=== PATIENT | male | born 1935 | race Caucasian/White ===

== ENCOUNTER 2022-11-14 14:16 | Emergency (ER) | payer MEDICARE, OTHER, SELFPAY ==
[2022-11-14] VITALS (7 sets, daily range): BP systolic 119–143; BP diastolic 76–87; PULSE 82–84; RESP 16–18; TEMP 36.8; O2SAT 98–100; BMI 27.9
--- NOTE | 2022-11-14 15:03 | ED.GENADULT ---
HPI - General Adult General Time Seen by Provider: 15:03 Date Seen: 11/14/22 Chief complaint: Cough Stated complaint: COVID+ Time Seen by Provider: 11/14/22 14:49 Source: patient and RN notes reviewed Limitations: no limitations History of Present Illness HPI narrative: This 86-year-old male is coming in just wanting someone to listen to his lungs, reassure him that he is okay. He has been sick with a cold for couple weeks. He would not say that his respiratory status is that concerning. Did finally test for COVID today, use 2 tests in both were positive. He has had a lot of postnasal congestion with this, no fevers. Can not really tell if there is a sore throat or if it is just the posterior nasal drainage. He has had a bit of a cough, sometimes productive, sometimes feels like it is difficult to get the mucus up. Denies any prior cardiopulmonary history. Has not really had any chest pain. Does have some pain with exhaling but not breathing in. He is not short of breath with this. Has had no GI symptoms with this. He states he is up-to-date on his immunizations including COVID. He did have documented COVID about 6 months ago. Related Data Home Medications Medication Instructions Recorded Confirmed finasteride 5 mg tablet mg 11/14/22 simvastatin 20 mg tablet mg 11/14/22 Previous Rx's Medication Instructions Recorded doxycycline monohydrate 100 mg 100 mg PO BID #14 caps 11/14/22 capsule Allergies Allergy/AdvReac Type Severity Reaction Status Date / Time No Known Drug Allergies Allergy Verified 11/14/22 14:52 Review of Systems Status of ROS: Reports: 6 or more systems reviewed and unremarkable except as noted in History and below PFSH PFS Social History Smoking Status: Never smoker Do you use any of these nicotine containing products: None Second hand tobacco smoke exposure: No How often do you have a drink containing alcohol: never AUDIT-C Alcohol total score: 0 Non-prescribed substance use: denies use service: No Exam Const: Vital Signs, click to edit/add: Vital Signs - 24 hr 11/14/22 14:49 11/14/22 14:49 11/14/22 15:30 Temperature 98.2 F Pulse Rate [Pulse Oximeter] 83 82 Respiratory Rate 16 18 Blood Pressure [Ri ght Upper Arm] 143/87 H 129/76 Pulse Oximetry 98 99 99 Oxygen Delivery Me thod Room Air Room Air 11/14/22 15:00 Temperature Pulse Rate [Pulse Oximeter] 82 Respiratory Rate Blood Pressure [Ri ght Upper Arm] 129/85 Pulse Oximetry 98 Oxygen Delivery Me thod Room Air Documenting provider has reviewed patient's vital signs: yes Common normals: no apparent distress, average body habitus, oriented x3, no limitations, healthy appearing, alert and well nourished General appearance: cooperative, comfortable, well kempt and well developed Other: Patient is able speak in complete sentences, is oxygenating in the upper 90s without any difficulty. Looks quite well. HENMT: Common normals: normocephalic, head/scalp atraumatic and hearing grossly normal bilaterally Head and scalp: normocephalic and atraumatic Eye: Common normals: PERRL, EOMs intact bilaterally, conjunctivae normal and no scleral icterus Conjunctiva: conjunctiva(e) normal Pupil: PERRL Neck & C-Spine: Common normals: full ROM, no lymphadenopathy, supple, no meningeal signs, no JVD and thyroid normal Thyroid: thyroid normal Resp: Common normals: normal respiratory effort, no retractions, no use of accessory muscles and clear to auscultation bilaterally Auscultation: clear to auscultation bilaterally Cardio: Common normals: no JVD, regular rate, regular rhythm, S1 normal heart sound, S2 normal heart sound, no gallops, no clicks and no murmurs Rate: regular rate Rhythm: regular rhythm Heart sounds: S1 normal and S2 normal GI: Common normals: Normal to inspection, nondistended, normoactive bowel sounds present, soft to palpation, non-tender, no hepatosplenomegaly and no masses Palpation: soft and no hepatosplenomegaly Neuro: Common normals: oriented x3 Sensorium/orientation: alert Meningeal signs: no meningeal signs Psych: Appearance: well kempt Course Course Hospital Course: Monitor him on pulse oximetry to ensure no hypoxia. Will do basic labs and get a portable chest x-ray for him. He is in agreement with this plan. Reevaluation(s) Reevaluation #1: Reviewed with patient that he has been oxygenating excellently while here, no hypoxia. His chest x-ray is potentially showing maybe a small focus of pneumonia. My guess is that he has had COVID and is developing a little secondary pneumonia. 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 His labs are stable, no evidence of any cardiac complications. He is stable to discharge to home. Would not initiate any antiviral treatment for COVID given that he has been sick for 2 weeks. Time: 16:53 Vital Signs Vital signs: Initial Vital Signs Temperature 98.2 F 11/14/22 14:49 Temperature Source Temporal Artery Scan 11/14/22 14:49 Pulse Rate 83 11/14/22 14:49 Pulse Rhythm 11/14/22 14:49 Pulse Strength 3+ Normal 11/14/22 14:49 Respiratory Rate 16 11/14/22 14:49 Blood Pressure 143/87 H 11/14/22 14:49 Blood Pressure Mean 105 11/14/22 14:49 Blood Pressure Position Supine 11/14/22 14:49 Pulse Oximetry 98 11/14/22 14:49 Oxygen Delivery Method 11/14/22 14:49 Vital Signs Temperature 98.2 F 11/14/22 14:49 Pulse Rate 83 11/14/22 14:49 Respiratory Rate 16 11/14/22 14:49 Blood Pressure 143/87 H 11/14/22 14:49 Pulse Oximetry 98 11/14/22 14:49 Oxygen Delivery Method 11/14/22 14:49 Temperature 98.2 F 11/14/22 14:49 Pulse Rate 82 11/14/22 15:30 Respiratory Rate 18 11/14/22 15:30 Blood Pressure 129/76 11/14/22 15:30 Pulse Oximetry 99 11/14/22 15:30 Oxygen Delivery Method 11/14/22 15:30 Medical Decision Making Lab Data Lab results reviewed: Yes I reviewed the patient's lab results Labs: Lab Results 11/14/22 11/14/22 11/14/22 Range/Units 14:53 15:46 15:46 WBC 6.98 (4.50-11.00) K/uL RBC 4.72 (4.30-5.90) m/uL Hgb 15.4 (13.5-17.5) gm/dL Hct 46.4 (37.0-53.0) % MCV 98 (80-100) fL MCH 33 (26-34) pg MCHC 33 (32-36) gm/dL RDW Coeff of Chetan 13.1 (11.5-15.5) % Plt Count 184 (140-440) K/uL Neut % (Auto) 58.4 (42.0-72.0) % Lymph % (Auto) 22.6 (20-44) % Mcdonough % (Auto) 15.5 H (0.0-11.0) % Eos % (Auto) 2.1 (0.0-7.0) % Baso % (Auto) 0.4 (0.0-3.0) % Neut # (Auto) 4.07 (1.7-7.0) K/uL Lymph # (Auto) 1.58 (0.90-2.90) K/uL Mcdonough # (Auto) 1.10 H (0.00-0.90) K/UL Eos # (Auto) 0.15 (0.00-0.50) K/uL Baso # (Auto) 0.03 (0.00-0.30) K/uL Sodium 140 (135-149) mmol/L Potassium 4.6 (3.6-5.1) mmol/L Chloride 105 (96-114) mmol/L Carbon Dioxide 29 (20-32) mmol/L BUN 23 (7-30) mg/dL Creatinine 1.1 (0.5-1.5) mg/dL Estimated Creat Clear 53.24 Estimated GFR 66 ml/min Glucose 88 (60-115) mg/dL Calcium 9.3 (8.4-10.6) mg/dL Total Bilirubin 0.5 (0.1-1.5) mg/dL AST 43 H (12-35) U/L ALT 54 H (4-50) U/L Alkaline Phosphatase 85 (40-150) U/L C-Reactive Protein 0.7 (0.5-1.0) mg/dL Total Protein 7.2 (6.0-8.3) g/dL Albumin 4.3 (3.3-5.0) g/dL SARS-CoV-2 (PCR) POSITIVE SARS-CoV-2 A (Negative) Influenza Type A (PCR) Negative PCR FLU A (Negative) Influenza Type B (PCR) Negative PCR FLU B (Negative) RSV (PCR) Negative PCR RSV (Negative) POC Troponin I (0.01-0.04) ng/ml 11/14/22 Range/Units 15:47 WBC (4.50-11.00) K/uL RBC (4.30-5.90) m/uL Hgb (13.5-17.5) gm/dL Hct (37.0-53.0) % MCV (80-100) fL MCH (26-34) pg MCHC (32-36) gm/dL RDW Coeff of Chetan (11.5-15.5) % Plt Count (140-440) K/uL Neut % (Auto) (42.0-72.0) % Lymph % (Auto) (20-44) % Mcdonough % (Auto) (0.0-11.0) % Eos % (Auto) (0.0-7.0) % Baso % (Auto) (0.0-3.0) % Neut # (Auto) (1.7-7.0) K/uL Lymph # (Auto) (0.90-2.90) K/uL Mcdonough # (Auto) (0.00-0.90) K/UL Eos # (Auto) (0.00-0.50) K/uL Baso # (Auto) (0.00-0.30) K/uL Sodium (135-149) mmol/L Potassium (3.6-5.1) mmol/L Chloride (96-114) mmol/L Carbon Dioxide (20-32) mmol/L BUN (7-30) mg/dL Creatinine (0.5-1.5) mg/dL Estimated Creat Clear Estimated GFR ml/min Glucose (60-115) mg/dL Calcium (8.4-10.6) mg/dL Total Bilirubin (0.1-1.5) mg/dL AST (12-35) U/L ALT (4-50) U/L Alkaline Phosphatase (40-150) U/L C-Reactive Protein (0.5-1.0) mg/dL Total Protein (6.0-8.3) g/dL Albumin (3.3-5.0) g/dL SARS-CoV-2 (PCR) (Negative) Influenza Type A (PCR) (Negative) Influenza Type B (PCR) (Negative) RSV (PCR) (Negative) POC Troponin I 0.00 L (0.01-0.04) ng/ml Imaging Data Chest x-ray: Attestation: I have reviewed the pertinent imaging results. My impression: Did visualize patient's chest x-ray. Radiologist's impression: Patient: VAUGHN QUEZADA Facility:?[facility] Patient ID:?[id number] Site Patient ID:?[id number]. Site :?[id number] Study:?XRay Chest Portable-11/14/2022 3:34:44 PM Ordering Physician:Annmarie Zepeda Final Report: INDICATION: Cough, COVID TECHNIQUE: Chest 1 view COMPARISON: 03/07/2022 FINDINGS: Cardiovascular and mediastinum: Tortuosity of the aorta. Cardiac silhouette is upper limits of normal. Lungs and pleural spaces: Subtle density within the left infrahilar lung is present. Incidental calcified granuloma within the right upper lobe and calcified nodule or lymph node adjacent to the right side of the trachea. Bones and soft tissues: No significant findings. IMPRESSION: A subtle infiltrate may be present within the left infrahilar lung. Old granulomatous disease. Dictated by Naveed Tejeda MD @ 11/14/2022 3:53:25 PM (Electronic Signature) ECG Data Attestation: I personally reviewed and interpreted this ECG as follows: (Normal sinus rhythm, 87 beats per minute, normal EKG, no ischemia. QT corrected 462 milliseconds.) Prior ECG tracings: not available for review Critical Care Time Critical Care Time Critical Care Time: No Discharge Plan Discharge Clinical Impression: COVID-19, Secondary bacterial pneumonia Condition: Stable Instructions: Bacterial Pneumonia (ED), COVID-19 (Coronavirus Disease 2019) (ED) Additional Instructions: Take oral antibiotics as prescribed, next dose due tomorrow morning. Recommend recheck with your primary care provider in about 1 weeks time or sooner if concerns. Should you develop fever, difficulty breathing or shortness of breath, feel you are worsening, do recommend re-evaluation. Activity Level: Activity as Tolerated Prescriptions: New doxycycline monohydrate 100 mg capsule 100 mg PO BID Qty: 14 0RF No Action simvastatin 20 mg tablet Label Comments: TAKE 1 TABLET BY MOUTH EVERYDAY AT BEDTIME finasteride 5 mg tablet Label Comments: TAKE 1 TABLET BY MOUTH EVERY DAY Follow Up/Referrals: Chito Rush MD [Primary Care Provider] - Stand Alone Forms: [facility] Info Instructions
--- NOTE | 2022-11-14 15:17 | CRLHL7_ITS ---
For Patients: As a result of the Cures Act, medical imaging exams and procedure reports are released immediately into your electronic medical record. You may view this report before your referring provider. If you have questions, please contact your health care provider. INDICATION: Cough, COVID TECHNIQUE: Chest 1 view COMPARISON: 03/07/2022 FINDINGS: Cardiovascular and mediastinum: Tortuosity of the aorta. Cardiac silhouette is upper limits of normal. Lungs and pleural spaces: Subtle density within the left infrahilar lung is present. Incidental calcified granuloma within the right upper lobe and calcified nodule or lymph node adjacent to the right side of the trachea. Bones and soft tissues: No significant findings. IMPRESSION: A subtle infiltrate may be present within the left infrahilar lung. Old granulomatous disease. Dictated by Naveed Tejeda MD @ 11/14/2022 3:53:25 PM (Electronically Signed)
[2022-11-14 15:40] LABS: PCR FLU A Negative PCR FLU A (Negative); PCR FLU B Negative PCR FLU B (Negative); PCR RSV Negative PCR RSV (Negative)
[2022-11-14 15:41] LABS: SARS PCR* POSITIVE SARS-CoV-2 (Negative)
[2022-11-14 16:05] LABS: Basophils Absolute Auto 0.03 K/uL (0.00-0.30); Basophils Percent Auto 0.4 % (0.0-3.0); Eosinophils Absolute Auto 0.15 K/uL (0.00-0.50); Eosinophils Percent Auto 2.1 % (0.0-7.0); Hematocrit 46.4 % (37.0-53.0); Hemoglobin* 15.4 gm/dL (13.5-17.5); Immature Granulocytes Abs Auto 0.07 K/uL (0.00-0.30); Lymphocytes Absolute Auto 1.58 K/uL (0.90-2.90); Lymphocytes Percent Auto 22.6 % (20-44); Mean Corpuscular HGB Conc 33 gm/dL (32-36); Mean Corpuscular Hemoglobin 33 pg (26-34); Mean Corpuscular Volume 98 fL (80-100); Monocytes Percent Auto 15.5 % (0.0-11.0); Neutrophils Absolute Auto 4.07 K/uL (1.7-7.0); Neutrophils Percent Auto 58.4 % (42.0-72.0); Platelet Count* 184 K/uL (140-440); RDW Coefficient of Variation % 13.1 % (11.5-15.5); Red Blood Count 4.72 m/uL (4.30-5.90); White Blood Count* 6.98 K/uL (4.50-11.00)
[2022-11-14 16:06] LABS: Slide Review Reflex No
[2022-11-14 16:08] LABS: Albumin* 4.3 g/dL (3.3-5.0); Chloride* 105 mmol/L (96-114)
[2022-11-14 16:09] LABS: Potassium* 4.6 mmol/L (3.6-5.1); Sodium* 140 mmol/L (135-149)
[2022-11-14 16:11] LABS: Creatinine* 1.1 mg/dL (0.5-1.5); Est. Creatinine Clearance* 53.24; Estimated Glomerular Filt Rate 66 ml/min
[2022-11-14 16:12] LABS: Alanine Aminotransferase* 54 U/L (4-50); Alkaline Phosphatase* 85 U/L (40-150); Aspartate Amino Transferase* 43 U/L (12-35); Bilirubin Total* 0.5 mg/dL (0.1-1.5); Blood Urea Nitrogen* 23 mg/dL (7-30); Calcium* 9.3 mg/dL (8.4-10.6); Carbon Dioxide* 29 mmol/L (20-32); Glucose* 88 mg/dL (60-115); Total Protein* 7.2 g/dL (6.0-8.3)
[2022-11-14 16:14] LABS: C Reactive Protein* 0.7 mg/dL (0.5-1.0)
[2022-11-14] MEDS: DOXYCYCLINE HYCLATE 100 MG CAPSULE PO (18:20)
== END 2022-11-14 17:34 | disposition home or self-care (01) ==
PROVIDERS: Emergency Provider Family Medicine; PCP Family Medicine
DX: U07.1 COVID-19 (principal); J18.9 Pneumonia, unspecified organism
CPT/HCPCS: 36415; 71045; 80053; 84484; 85025; 86140; 87502; 87634; 87635; 93005; 94761; 99284; 99285; A9270